=== PATIENT | female | born 1960 | race Caucasian/White ===

== ENCOUNTER 2018-04-04 18:30 | Emergency (ER) | payer MEDICARE, OTHER ==
[2018-04-04] MEDS ORDERED: MORPHINE SULFATE 10 MG/ML VIAL IVP ONE (18:37)
[2018-04-04] MEDS ORDERED: ONDANSETRON HCL IV 4 MG/2 ML VIAL IVP ONE (18:37)
--- NOTE | 2018-04-04 18:42 | Emergency Department Record ---
History of Present Illness - General Chief Complaint: Abdominal Pain Stated Complaint: ABD PAIN Time Seen by Provider: 04/04/18 18:31 Source: Patient Mode of Arrival: Ambulatory Limitations: No limitations - History of Present Illness Initial Comments: 58 yo female with a history of end-stage liver disease from heaptitis C and fatty liver (currently on transplant list x 2.5 years at [facility]) presents to ED for evaluation of "colicky" upper abdominal pain symptoms that began 3-4 days ago, worsened this evening. Patient reports associated nausea/vomiting, denies fevers, chills. Patient reports previous jeferson, denies other abdominal surgery history. Patient denies back pain/flank pain or urinary symptoms. MD Complaint: Abdominal pain Onset/Timin -: Days(s) Radiation: None Migration to: Epigastric Severity: Severe Severity scale (1-10): 9 Quality: Aching Consistency: Intermittent Improves With: Nothing Worsens With: Nothing Associated Symptoms: Vomiting - Related Data Patient : No Home Medications Medication Instructions Recorded Confirmed Last Taken Ciprofloxacin HCl [Cipro] 500 mg PO QPM 04/04/18 04/04/18 1 Day Ago ~04/03/18 Furosemide 20 mg PO DAILY 04/04/18 04/04/18 1 Day Ago ~04/03/18 Hydrocodone/Acetaminophen [[place] 1 each PO TID PRN 04/04/18 04/04/18 1 Day Ago 7.5-325 Tablet] ~04/03/18 Lactulose 30 gm PO DAILY 04/04/18 04/04/18 1 Day Ago ~04/03/18 Omeprazole 40 mg PO DAILY 04/04/18 04/04/18 1 Day Ago ~04/03/18 Propranolol HCl 20 mg PO DAILY 04/04/18 04/04/18 1 Day Ago ~04/03/18 Rifaximin [Xifaxan] 550 mg PO BID 04/04/18 04/04/18 1 Day Ago ~04/03/18 Spironolactone 50 mg PO DAILY 04/04/18 04/04/18 1 Day Ago ~04/03/18 Trazodone HCl 150 mg PO QHS 04/04/18 04/04/18 1 Day Ago ~04/03/18 Allergies Allergy/AdvReac Type Severity Reaction Status Date / Time codeine Allergy RASH Verified 04/04/18 18:45 contrast dye Allergy RASH Uncoded 04/04/18 18:45 Review of Systems Constitutional: Denies: Chills, Fever, Malaise, Night sweats Eyes: Denies: Eye discharge, Eye pain ENT: Denies: Congestion, Ear pain, Epistaxis Respiratory: Denies: Cough, Dyspnea Cardiovascular: Denies: Chest pain, Dyspnea on exertion Endocrine: Denies: Fatigue, Heat or cold intolerance Gastrointestinal: Reports: Abdominal pain, Nausea, Vomiting Genitourinary: Denies: Incontinence, Retention Musculoskeletal: Denies: Arthralgia, Back pain, Gout, Joint swelling Skin: Denies: Bruising, Change in color Neurological: Denies: Abnormal gait, Confusion, Headache, Seizure Psychiatric: Denies: Anxiety Hematological/Lymphatic: Denies: Anemia, Blood Clots Physical Exam - General General Appearance: Alert, Oriented x3, Cooperative, Moderate distress Limitations: No limitations - Head Head exam: Atraumatic, Normocephalic, Normal inspection Head exam detail: negative: Abrasion, Contusion, Dover's sign, General tenderness, Hematoma, Laceration - Eye Eye exam: Normal appearance. negative: Conjunctival injection, Periorbital swelling, Periorbital tenderness, Scleral icterus - ENT Ear exam: negative: Auricular hematoma, Auricular trauma Nasal Exam: negative: Active bleeding, Discharge, Dried blood, Foreign body Mouth exam: negative: Drooling, Laceration, Muffled voice, Tongue elevation - Neck Neck exam: Normal inspection. negative: Meningismus, Tenderness - Respiratory Respiratory exam: Normal lung sounds bilaterally. negative: Rales, Respiratory distress, Rhonchi, Stridor - Cardiovascular Cardiovascular Exam: Regular rate, Normal rhythm, Normal heart sounds - GI/Abdominal GI/Abdominal exam: Soft, Tenderness (Mild TTP epigatric/russell-umbilical region, no rebound or guareding present.). negative: Rebound, Rigid - Rectal Rectal exam: Deferred - exam: Deferred - Back Back exam: Reports: Normal inspection. Denies: CVA tenderness (R), CVA tenderness (L) - Neurological Neurological exam: Alert, Normal gait, Oriented X3 - Psychiatric Psychiatric exam: Normal affect, Normal mood - Skin Skin exam: Normal color. negative: Abrasion Type of lesion: negative: abrasion Course - Reevaluation(s) Reevaluation #1: 04/04/18 19:30 Laboratory studies reviewed: T. Bili 2.5 AST 46. Ammonia/UA pending. Reevaluation #2: 04/04/18 20:37 UA reviewed and appears negative except for small amount of biliruben. Reevaluation #3: 04/04/18 20:56 CT Abdomen and Pelvis: Recto-uterine complex cyst, cannot exclude neoplastic process Cirrhosis Splenomegaly Patient was updated on all results, reports that she is feeling significantly better. Patient was counseled re: ultrasound follow-up for cystic lesion in the recto- uterine region as well, both the patient and SO verbalize understanding of all instructions. Patient appears stable for discharge at this time. Medical Decision Making - Lab Data Result diagrams: 04/04/18 18:45 04/04/18 18:45 Disposition Disposition: Discharge Clinical Impression: Cystic lesion of pelvic viscera Abdominal pain Qualifiers: Abdominal location: epigastric Qualified Code(s): R10.13 - Epigastric pain Cirrhosis Qualifiers: Hepatic cirrhosis type: unspecified hepatic cirrhosis Ascites presence: without ascites Qualified Code(s): K74.60 - Unspecified cirrhosis of liver Disposition: Home, Self-Care Condition: (2) Stable Instructions: Cirrhosis (ED) Additional Instructions: Return to ED if your symptoms worsen or if you have any concerns. Follow-up with your family doctor in 3-5 days as directed. Follow-up with your PCP for further evaluation of a cystic lesion in the pelvis in 1-2 weeks as directed. Forms: Patient Portal Access Time of Disposition: 21:00 Quality - Quality Measures Quality Measures: N/A - Blood Pressure Screening Does Patient Have Any of the Following: No Blood Pressure Classification: Pre-Hypertensive BP Reading Systolic Measurement: 130 Diastolic Measurement: 57 Screening for High Blood Pressure: < Pre-Hypertensive BP, F/U Documented > [ [id number]] Pre-Hypertensive Follow-up Interventions: Referral to alternative/primary care provider.
[2018-04-04] MEDS ORDERED: 0.9 % SODIUM CHLORIDE 1000ML 500 ML IV SCH (18:45)
[2018-04-04 19:00] LABS: MEAN CELL VOLUME 92.6 fl (81-97); MEAN CORPUSCULAR HEMOGLOBIN 31.6 pg (27-33); MEAN CORPUSCULAR HGB CONC 34.1 g/dl (32-36); MEAN PLATELET VOLUME 11.4 fl (7.4-10.4); PLATELET COUNT 60 K/uL (130-400); RED BLOOD COUNT 4.75 M/uL (3.80-5.40); RED CELL DISTRIBUTION WIDTH 14.9 % (11.5-14.5); WHITE BLOOD COUNT W/O DIFF 7.9 K/uL (4.2-12.2)
[2018-04-04 19:13] LABS: BLOOD UREA NITROGEN 8 mg/dL (6-20)
[2018-04-04 19:14] LABS: CREATININE 0.5 mg/dL (0.5-0.9); EST GLOMERULAR FILTRATION RATE > 60 mL/min; TOTAL PROTEIN 6.9 g/dL (6.6-8.7)
[2018-04-04 19:16] LABS: GLUCOSE,RANDOM 90 mg/dL (74-109)
[2018-04-04 19:19] LABS: ALB/GLOB RATIO 1.6 (1.1-1.8); ALBUMIN 4.2 g/dL (4.0-5.0); ALKALINE PHOSPHATASE 138 U/L (35-104); ALT/SGPT 23 U/L (<33); AST/SGOT 46 U/L (10.0-35.0); LIPASE 45 U/L (13-60)
[2018-04-04 20:29] LABS: URINE APPEARANCE CLEAR; URINE BILIRUBIN SMALL (NEGATIVE); URINE BLOOD NEGATIVE (NEGATIVE); URINE COLOR STRAW; URINE GLUCOSE (UA) NEGATIVE (NEGATIVE); URINE KETONE TRACE (NEGATIVE); URINE LEUKOCYTE ESTERASE NEGATIVE (NEGATIVE); URINE NITRITE NEGATIVE (NEGATIVE); URINE PROTEIN TRACE (NEGATIVE)
--- NOTE | 2018-04-06 09:19 | CT SCAN REPORT ---
EXAM: CT SCAN OF THE ABDOMEN AND PELVIS HISTORY: PATIENT HAS UPPER ABDOMINAL PAIN. NAUSEA AND VOMITING TIMES TEN DAYS. PATIENT HAS A HISTORY OF HEPATIC ENCEPHALOPATHY. PATIENT HAS A HISTORY OF ASCITES, HEPATITIS C AND END STAGE LIVER DISEASE. TECHNIQUE: Noncontrast CT scan of the abdomen and pelvis was obtained. FINDINGS: The lung windows of the lung bases demonstrate linear subsegmental atelectasis and/or scarring at the bilateral posterior costophrenic angles. Calcified granuloma is not4ed within the right lower lobe. The visualized heart size and contour is within normal limits. A small hiatal hernia is noted. The liver demonstrates moderate atrophy with micronodular and macronodular surface contour. These findings are compatible with cirrhosis given the patient 's clinical history. No obvious focal hepatic lesions are identified. The spleen measures 15.9 cm in AP dimension. This is considered enlarged. The pancreas and adrenal glands are unremarkable. Cholecystectomy clips are noted within the right upper quadrant of the abdomen. The bilateral kidneys demonstrate no CT evidence of hydronephrosis or hydroureter. No renal or ureteral calculi are noted. The contour and caliber of the noncontrasted abdominal aorta is within normal limits. There is no CT evidence of retroperitoneal, pelvic or inguinal lymphadenopathy. The bowel gas pattern is nonspecific and nonobstructive. Multiple colonic diverticula are noted without CT evidence of diverticulitis. Postoperative changes are identified within the right anterior abdominal wall. A small amount of free fluid is noted within the right perihepatic space. There is no CT evidence of free intraperitoneal air. The urinary bladder is unremarkable. The uterus is unremarkable. Within the rectouterine space, there is a complex 7.6 cm x 6 cm cystic structure identified. This may represent an ovarian cyst, however, cystic ovarian neoplasm cannot be excluded. Ultrasound examination of the pelvis can be obtained for further evaluation. Bone windows demonstrate degenerative disk disease in the lower lumbar spine. IMPRESSION: 1. CIRRHOSIS WITH SPLENOMEGALY IS NOTED DESCRIBED. 2. SMALL HIATAL HERNIA IS NOTED. 3. COMPLEX CYSTIC STRUCTURE IS IDENTIFIED WITHIN THE RECTOUTERINE SPACE IS NOTED DISCUSSED ABOVE. NEOPLASTIC OVARIAN CYSTIC LESION CANNOT BE EXCLUDED. AN ULTRASOUND EXAMINATION THE PELVIS CAN BE OBTAINED FOR FURTHER CHARACTERIZATION. JOB NUMBER: [id number] MTDD
== END 2018-04-04 21:06 | disposition home or self-care (01) ==
LOC: ER 18:30
DX: R19.07 Generalized intra-abdominal and pelvic swelling, mass and lump (principal); R10.13 Epigastric pain; R11.2 Nausea with vomiting, unspecified; K75.9 Inflammatory liver disease, unspecified; K74.60 Unspecified cirrhosis of liver
CPT/HCPCS: 99284 ×2; 96374; 96375; 96361; 83605; 83690; 82140; 80053; 81003; 85027; 74176; J2405; J2270; J7030